=== PATIENT | male | born 1990 | race Caucasian/White ===

== ENCOUNTER 2017-08-09 15:46 | Inpatient (IN) | payer SELFPAY ==
[~2017-08-09] VITALS: Ht 190.5 cm; Wt 91.9 kg
--- NOTE | 2017-08-09 16:18 | EMERGENCY ROOM VISIT NOTE ---
History Report prepared by Joan: Dave Davis Under the Supervision of: Dr. Francisca Waller D.O. First contact with patient: 15:57 Chief Complaint: CHEST PAIN Stated Complaint: CHEST PAIN,RAPID HEART RATE History of Present Illness The patient is a 27 year old male who presents to the Emergency Room with complaints of waxing and waning chest pain that started this morning around 4 and a half hours ago. He says that he was standing up at work doing nothing out of the ordinary when he started feeling a rapid, fluttering heartbeat, as well as some chest pain, lightheadedness, and dizziness. He states that he felt like the room was spinning. The patient says that the symptoms have been waxing and waning throughout the day, but has been persistent all day. He notes that he had an episode similar to this in December, but it was much worse that time. He says that he did not get followed-up for the episode. He states that the pain has been dull today. The patient notes that nothing has been making the pain better or worse. He adds that he is currently recovering from a cold, but has not taken any medications for the cold in the past few days. He states that he has not drank that much water today, and did not drink any caffeine today. The patient denies any shortness of breath, radiation of pain, feelings of passing out, nausea, vomiting, urinary symptoms, or bowel movement changes. He also denies any recent changes in his diet or any long travels. The patient says that he does not take any daily medications. He notes that he drinks alcohol occasionally, but does not smoke or use recreational drugs. He notes no family history of heart disease. He does add that he has had some increased stress recently. Source of History: patient Onset: Around 4 and a half hours ago Position: chest Quality: dull Timing: waxes/wanes Associated Symptoms: No SOB, No nausea, No vomiting, No urinary symptoms Note: Associated symptoms: Rapid, fluttering heart rate. Lightheadedness, dizziness, room spinning. Denies feelings of passing out, bowel movement changes. Review of Systems See HPI for pertinent positives & negatives. A total of 10 systems reviewed and were otherwise negative. Past Medical & Surgical Medical Problems: (1) ARF (acute renal failure) (2) No chronic diseases present Family History No pertinent family history Social History Smoking Status: Former Smoker Smokeless Tobacco Use: No Alcohol Use: occasionally Marital Status: in relationship Current/Historical Medications Scheduled Amoxicillin & Pot Clavulanate (Augmentin 500MG), 1 TAB PO TID Allergies Coded Allergies: No Known Allergies (Unverified , 08/09/17) Physical Exam Vital Signs Date Time Temp Pulse Resp B/P (MAP) Pulse Ox O2 Delivery O2 Flow Rate FiO2 08/09/17 18:53 97 20 146/82 100 Room Air 08/09/17 17:21 105 20 169/86 99 Room Air 08/09/17 16:11 102 08/09/17 16:03 100 Room Air 08/09/17 16:02 100 Room Air 08/09/17 15:51 36.6 107 20 152/87 100 Room Air Physical Exam GENERAL: alert, well appearing, well nourished, no distress, non-toxic EYE EXAM: normal conjunctiva, PERRL and EOM's grossly intact OROPHARYNX: no exudate, no erythema, lips, buccal mucosa, and tongue normal and mucous membranes are moist NECK: supple, no nuchal rigidity, no adenopathy, non-tender LUNGS: Clear to auscultation. Normal chest wall mechanics HEART: Tachycardic rate, regular rhythm. No murmurs, S1 normal and S2 normal ABDOMEN: abdomen soft, non-tender, normo-active bowel sounds, no masses, no rebound or guarding. BACK: Back is symmetrical on inspection and there is no deformity, no midline tenderness, no CVA tenderness. SKIN: no rashes and no bruising UPPER EXTREMITIES: upper extremities are grossly normal. LOWER EXTREMITIES: No pitting edema. NEURO EXAM: Normal sensorium, cranial nerves II-XII grossly intact, normal speech, no gross weakness of arms, no gross weakness of legs. Medical Decision & Procedures ER Provider Diagnostic Interpretation: Radiology results have been interpreted by the radiologist and reviewed by me. CHEST ONE VIEW PORTABLE CLINICAL HISTORY: 27 years-old Male presenting with chest pain. TECHNIQUE: Portable upright AP view of the chest was obtained. COMPARISON: None. FINDINGS: Cardiomediastinal silhouette normal. Lungs and pleural spaces clear. Osseous structures normal. Upper abdomen normal. IMPRESSION: 1. No acute cardiopulmonary disease. Electronically signed by: Nick Zamarripa M.D. 08/09/2017 4:52 PM Dictated Date/Time: 08/09/2017 4:51 PM Bedside echo revealed no pericardial effusion. Normal EF. No evidence of RV dilatation. Laboratory Results Test 08/09/17 16:25 08/09/17 17:08 08/09/17 18:49 Hypersegmented Polys 1+ Prothrombin Time 11.2 SECONDS (9.0-12.0) Prothromb Time International Ratio 1.0 (0.9-1.1) D-Dimer 380 ug/L FEU (0-500) Total Bilirubin 0.5 mg/dl (0.2-1) Aspartate Amino Transf (AST/SGOT) 50 U/L (15-37) Alanine Aminotransferase (ALT/SGPT) 42 U/L (12-78) Alkaline Phosphatase 94 U/L (45-117) C-Reactive Protein < 0.29 mg/dl (0-0.29) Total Protein 8.0 gm/dl (6.4-8.2) Albumin 4.4 gm/dl (3.4-5.0) Globulin 3.6 gm/dl (2.5-4.0) Albumin/Globulin Ratio 1.2 (0.9-2) Thyroid Stimulating Hormone (TSH) 0.672 uIu/ml (0.300-4.500) Lyme Disease IgG Antibody NEG (NEG) Lyme Disease IgM Antibody NEG (NEG) Influenza Type A Antigen Neg for Influ A (NEG) Influenza Type B Antigen Neg for Influ B (NEG) Urine Color DK YELLOW Urine Appearance CLEAR (CLEAR) Urine pH 5.0 (4.5-7.5) Urine Specific [place] 1.030 (1.000-1.030) Urine Protein TRACE (NEG) Urine Glucose (UA) NEG (NEG) Urine Ketones 1+ (NEG) Urine Occult Blood NEG (NEG) Urine Nitrite NEG (NEG) Urine Bilirubin NEG (NEG) Urine Urobilinogen NEG (NEG) Urine Leukocyte Esterase NEG (NEG) Urine WBC (Auto) 1-5 /hpf (0-5) Urine RBC (Auto) 0-4 /hpf (0-4) Urine Hyaline Casts (Auto) 10-30 /lpf (0-5) Urine Epithelial Cells (Auto) 10-20 /lpf (0-5) Urine Bacteria (Auto) NEG (NEG) Urine Pathogenic Casts 1-5 GRANULAR CASTS /lpf (0) Urine Opiates Screen NEG (NEG) Urine Methadone, Qualitative NEG (NEG) Urine Barbiturates NEG (NEG) Urine Phencyclidine (PCP) Level NEG (NEG) Urine Amphetamines Confirmation NEGATIVE NG/ML ([id number]) Ur Amphetamine/Methamphetamine POS (NEG) Urine Methamphetamine Confirmation NEGATIVE NG/ML ([id number]) MDMA (Ecstasy) Screen NEG (NEG) Urine Benzodiazepines Screen NEG (NEG) Urine Cocaine Metabolite NEG (NEG) Urine Marijuana (THC) NEG (NEG) Laboratory results per my review. Medications Administered Medications (Trade) Dose Ordered Sig/Reba Route Start Time Stop Time Status Last Admin Dose Admin Lactated Ringer's 1,000 ml @ 200 mls/hr Q5H STAT IV 08/09/17 17:29 08/09/17 21:59 DC 08/09/17 17:29 200 MLS/HR Ketorolac Tromethamine (Toradol Inj) 30 mg STK-MED ONCE .ROUTE 08/09/17 18:52 08/09/17 18:53 DC 08/09/17 18:55 30 MG ECG Indication: chest pain Rate (beats per minute): 105 Rhythm: sinus tachycardia Findings: other (normal axis, normal intervals) ED Course 1605: The patient was evaluated in room A2. A complete history and physical exam was performed. 1710: I reevaluated and updated the patient. Bedside echo revealed no pericardial effusion. Normal EF. No evidence of RV dilatation. 1729: Ordered Lactated Ringer's 1000 ml @ 200 mls/hr IV. 1807: Ordered Toradol Inj 30 mg IV. 1827: Upon reevaluation, the patient is resting. I discussed the findings and the treatment plan with the patient. He expresses agreement and understanding. He will be evaluated for further management. 1857: I reviewed the patient's case with Dr. Doe Kruse [facility] [place] customer success advocate. He will evaluate the patient for further management. Medical Decision Differential diagnosis: Etiologies such as cardiac ischemia, aortic dissection, pulmonary embolism, pneumonia, pneumothorax, musculoskeletal, infections, pericarditis, myocarditis , esophageal rupture, gastrointestinal, premature contractions, electrolyte abnormality, cardiac dysrhythmia, thyroid dysfunction, pulmonary embolism, infection, gastrointestinal, as well as others were entertained. HEART score 0 Doubt PE, dissection. No evidence on bedside echo of CHF or effusion/ tamponade. Pt admitted for observation given leukocytosis. Tachycardia improved however pain persistent. Possible pericarditis, trop neg, doubt myocarditis. Doubt infiltrate/effusion. Question pleurisy. Cultures sent as a precaution. No empiric antibiotics started, no clear source. Remote hx of substance abuse, none in many years, no evidence of vegetations on bedside echo , doubt endocarditis. VS stable otw. medicine asked for CT angio to r/o dissection at time of admission. Also wanted CRP added. Medication Reconcilliation Current Medication List: was personally reviewed by me Blood Pressure Screening Patient's blood pressure: Elevated blood pressure Blood pressure disposition: Elevated BP felt to be situational Consults Time Called: [phone] Consulting Physician: Dr. Doe TAYLOR customer success advocate Returned Call: [phone] I reviewed the patient's case with Dr. Doe TAYLOR customer success advocate. He will evaluate the patient for further management. Impression Primary Impression: Chest pain Additional Impressions: Palpitations Leukocytosis Scribe Attestation The scribe's documentation has been prepared under my direction and personally reviewed by me in its entirety. I confirm that the note above accurately reflects all work, treatment, procedures, and medical decision making performed by me. Departure Information Dispostion Being Evaluated By Hospitalist Prescriptions Amoxicillin & Pot Clavulanate (AUGMENTIN 500MG) 1 Tab Tab 1 TAB PO TID for 6 Days, #18 TAB Prov: Florentino Mirza M.D. 08/11/17 Referrals No Doctor, Assigned (PCP) Patient Instructions My [facility] Problem Qualifiers Primary Impression: Chest pain Chest pain type: unspecified Qualified Codes: R07.9 - Chest pain, unspecified Additional Impressions: Leukocytosis Leukocytosis type: unspecified Qualified Codes: D72.829 - Elevated white blood cell count, unspecified
[2017-08-09 16:47] LABS: HEMATOCRIT 44.1 % (42-52); MEAN CELL VOLUME 90.7 fL (80-100); MEAN CORPUSCULAR HEMOGLOBIN 33.1 pg (25-34); MEAN CORPUSCULAR HGB CONC 36.5 g/dl (32-36); PLATELET COUNT 246 K/uL (130-400); RED BLOOD COUNT 4.86 M/uL (4.7-6.1); WHITE BLOOD COUNT 25.98 K/uL (4.8-10.8)
--- NOTE | 2017-08-09 16:53 | DIAGNOSTIC IMAGING REPORT ---
CHEST ONE VIEW PORTABLE CLINICAL HISTORY: 27 years-old Male presenting with chest pain. TECHNIQUE: Portable upright AP view of the chest was obtained. COMPARISON: None. FINDINGS: Cardiomediastinal silhouette normal. Lungs and pleural spaces clear. Osseous structures normal. Upper abdomen normal. IMPRESSION: 1. No acute cardiopulmonary disease. Electronically signed by: Nick Zamarripa M.D. 08/09/2017 4:52 PM Dictated Date/Time: 08/09/2017 4:51 PM
[2017-08-09 16:55] LABS: PROTHROMBIN TIME (PATIENT) 11.2 SECONDS (9.0-12.0)
[2017-08-09 17:08] LABS: BASO % 0.1 %; BASO ABS # 0.02 K/uL (0-0.2); COMPLETE YES; HYPERSEGMENTED POLYS 1+; IG% 0.6 %; LYMPH % 2.9 %; LYMPH ABS # 0.75 K/uL (1.2-3.4); MONO % 3.6 %; NEUT % 92.8 %
[2017-08-09 17:16] LABS: ALT/SGPT 42 U/L (12-78); AST/SGOT 50 U/L (15-37); BLOOD UREA NITROGEN 19 mg/dl (7-18); BUN/CREATININE RATIO 10.1 (10-20); CALCIUM 9.2 mg/dl (8.5-10.1); CARBON DIOXIDE 18 mmol/L (21-32); CHLORIDE 102 mmol/L (98-107); CREATININE 1.87 mg/dl (0.60-1.40); GLUCOSE 196 mg/dl (70-99); POTASSIUM 4.2 mmol/L (3.5-5.1); SODIUM 136 mmol/L (136-145)
[2017-08-09 17:26] LABS: ALB/GLOB RATIO 1.2 (0.9-2); ALKALINE PHOSPHATASE 94 U/L (45-117); THYROID STIMULATING HORMONE 0.672 uIu/ml (0.300-4.500)
[2017-08-09] MEDS ORDERED: LACTATED RINGER'S 1000ML 1,000 ML IV STA (17:29)
[2017-08-09 17:34] LABS: LYME DISEASE AB IGM NEG (NEG)
[2017-08-09 17:35] LABS: LYME DISEASE AB IGG NEG (NEG)
[2017-08-09] MEDS ORDERED: KETOROLAC TROMETHAMINE 30 MG/ML VIAL IV STA (18:07)
[2017-08-09] MEDS ORDERED: KETOROLAC TROMETHAMINE 30 MG/ML VIAL ONE (18:52)
[2017-08-09 19:04] LABS: URINE APPEARANCE CLEAR (CLEAR); URINE BILIRUBIN NEG (NEG); URINE COLOR DK YELLOW; URINE NITRITE NEG (NEG); UROBILINOGEN NEG (NEG); ZZUR CULT IF INDIC CLEAN CATCH NO
[2017-08-09 19:05] LABS: MANUAL MICROSCOPIC REQUIRED? NO; REVIEW REQ? YES
[2017-08-09 19:21] LABS: URINE PATH CASTS 1-5 GRANULAR CASTS /lpf (0)
[2017-08-09 19:42] LABS: BENZODIAZEPINE, URINE NEG (NEG); COCAINE,URINE NEG (NEG); PHENCYCLIDINE, URINE NEG (NEG)
[2017-08-09] MEDS ORDERED: ALUMINUM/MAGNESIUM/SIMETH (MAALOX MAX) 30 ML UDC PO PRN (19:45)
[2017-08-09] MEDS ORDERED: POLYETHYLENE (MIRALAX) 17 GM PACK PO PRN (19:45)
[2017-08-09] MEDS ORDERED: ONDANSETRON INJ 2 MG/ML 2 ML VIAL IV PRN (19:45)
[2017-08-09] MEDS ORDERED: MoRPHine SULFATE 2 MG/ML CARP IV PRN (19:45)
[2017-08-09] MEDS ORDERED: ACETAMINOPHEN 325 MG TAB PO PRN (19:45)
[2017-08-09] MEDS ORDERED: MAGNESIUM HYDROXIDE SUSP 30 ML UDC PO PRN (19:45)
--- NOTE | 2017-08-09 19:56 | History and Physical ---
History & Physical Date & Time of Service: Aug 09, 2017 at 19:54 Chief Complaint: Chest Pain,Rapid Heart Rate Primary Care Physician: No Doctor, Assigned History of Present Illness Source: patient This is a 27 yo m that is presenting to us with left sided chest pain which started this evening. 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 He states that the chest pain is at the mid clavicular line approx half way down the chest and he can point to it with one finger. He notes that the pain is non radiating, intermittent, dull 4/10 pain. No known aggravating factors and non positional. It is not reproducible with palpation. He had a similar type of chest pain a few months back when he was ill and it was attributed to Sudafed use. He notes he is "just getting over a cold" which lasted approx a week. He was using decongestants at the beginning of the illness however has not used it for several days. He was also suffering from non bloody diarrhea which has resolved. He denies any abdominal pain, fever, sob, nausea. No history of cardiovascular events. Non smoker and no cocaine use. Past Medical/Surgical History Medical Problems: (1) No chronic diseases present Status: Chronic Family History No pertinent family history Social History Smoking Status: Former Smoker Smokeless Tobacco Use: No Alcohol Use: socially Drug Use: none Marital Status: single, in relationship Housing status: lives with friends Occupational Status: employed Allergies Coded Allergies: No Known Allergies (Unverified , 08/09/17) Home Medications No Active Prescriptions or Reported Meds Review of Systems Constitutional: No fever, No chills, No sweats Eyes: No worsening of vision ENT: No hearing loss Respiratory: No cough, No sputum, No wheezing, No shortness of breath, No dyspnea on exertion, No dyspnea at rest Cardiovascular: + chest pain Abdomen: + diarrhea, No pain, No nausea, No vomiting, No constipation Musculoskeletal: No joint pain, No muscle pain Genitourinary - Male: No hematuria Neurologic: No weakness, No numbness/tingling, No balance problems Psychiatric: No depression symptoms Endocrine: No fatigue Integumentary: No rash Physical Exam Vital Signs Date Time Temp Pulse Resp B/P (MAP) Pulse Ox O2 Delivery O2 Flow Rate FiO2 08/09/17 18:53 97 20 146/82 100 Room Air 08/09/17 17:21 105 20 169/86 99 Room Air 08/09/17 16:11 102 08/09/17 16:03 100 Room Air 08/09/17 16:02 100 Room Air 08/09/17 15:51 36.6 107 20 152/87 100 Room Air General Appearance: no apparent distress, + pertinent finding (marfinoid like habitus) Head: normocephalic, atraumatic Eyes: normal inspection ENT: normal ENT inspection Neck: supple Respiratory/Chest: normal breath sounds, no respiratory distress, no accessory muscle use Cardiovascular: no murmur, + tachycardia, + pertinent finding (PMI is just left to the left mid clavicular line) Abdomen/GI: normal bowel sounds, non tender, soft Back: normal inspection, no CVA tenderness Extremities/Musculoskelatal: normal inspection, no calf tenderness, no pedal edema Neurologic/Psych: alert Skin: normal color, warm/dry, no rash Lymphatic: no adenopathy Diagnostics Laboratory Results Results Past 24 Hours Test 08/09/17 16:25 08/09/17 17:08 08/09/17 18:49 08/09/17 19:45 Range/Units White Blood Count 25.98 4.8-10.8 K/uL Red Blood Count 4.86 4.7-6.1 M/uL Hemoglobin 16.1 14.0-18.0 g/dL Hematocrit 44.1 42-52 % Mean Corpuscular Volume 90.7 80-100 fL Mean Corpuscular Hemoglobin 33.1 25-34 pg Mean Corpuscular Hemoglobin Concent 36.5 32-36 g/dl Platelet Count 246 130-400 K/uL Mean Platelet Volume 9.0 7.4-10.4 fL Neutrophils (%) (Auto) 92.8 % Lymphocytes (%) (Auto) 2.9 % Monocytes (%) (Auto) 3.6 % Eosinophils (%) (Auto) 0.0 % Basophils (%) (Auto) 0.1 % Neutrophils # (Auto) 24.12 1.4-6.5 K/uL Lymphocytes # (Auto) 0.75 1.2-3.4 K/uL Monocytes # (Auto) 0.94 0.11-0.59 K/uL Eosinophils # (Auto) 0.00 0-0.5 K/uL Basophils # (Auto) 0.02 0-0.2 K/uL RDW Standard Deviation 45.1 36.4-46.3 fL RDW Coefficient of Variation 13.9 11.5-14.5 % Immature Granulocyte % (Auto) 0.6 % Immature Granulocyte # (Auto) 0.15 0.00-0.02 K/uL Hypersegmented Polys 1+ Prothrombin Time 11.2 9.0-12.0 SECONDS Prothromb Time International Ratio 1.0 0.9-1.1 D-Dimer 380 0-500 ug/L FEU Sodium Level 136 136-145 mmol/L Potassium Level 4.2 3.5-5.1 mmol/L Chloride Level 102 98-107 mmol/L Carbon Dioxide Level 18 21-32 mmol/L Anion Gap 16.0 3-11 mmol/L Blood Urea Nitrogen 19 7-18 mg/dl Creatinine 1.87 0.60-1.40 mg/dl Est Creatinine Clear Calc Drug Dose 70.9 ml/min Estimated GFR () 55.8 Estimated GFR (Non- 48.2 BUN/Creatinine Ratio 10.1 10-20 Random Glucose 196 70-99 mg/dl Calcium Level 9.2 8.5-10.1 mg/dl Magnesium Level 2.0 1.8-2.4 mg/dl Total Bilirubin 0.5 0.2-1 mg/dl Aspartate Amino Transf (AST/SGOT) 50 15-37 U/L Alanine Aminotransferase (ALT/SGPT) 42 12-78 U/L Alkaline Phosphatase 94 45-117 U/L Troponin I < 0.015 0-0.045 ng/ml Total Protein 8.0 6.4-8.2 gm/dl Albumin 4.4 3.4-5.0 gm/dl Globulin 3.6 2.5-4.0 gm/dl Albumin/Globulin Ratio 1.2 0.9-2 Thyroid Stimulating Hormone (TSH) 0.672 0.300-4.500 uIu/ml Lyme Disease IgG Antibody NEG NEG Lyme Disease IgM Antibody NEG NEG Influenza Type A Antigen Neg for Influ A NEG Influenza Type B Antigen Neg for Influ B NEG Urine Color DK YELLOW Urine Appearance CLEAR CLEAR Urine pH 5.0 4.5-7.5 Urine Specific [place] 1.030 1.000-1.030 Urine Protein TRACE NEG Urine Glucose (UA) NEG NEG Urine Ketones 1+ NEG Urine Occult Blood NEG NEG Urine Nitrite NEG NEG Urine Bilirubin NEG NEG Urine Urobilinogen NEG NEG Urine Leukocyte Esterase NEG NEG Urine WBC (Auto) 1-5 0-5 /hpf Urine RBC (Auto) 0-4 0-4 /hpf Urine Hyaline Casts (Auto) 10-30 0-5 /lpf Urine Epithelial Cells (Auto) 10-20 0-5 /lpf Urine Bacteria (Auto) NEG NEG Urine Pathogenic Casts 1-5 GRANULAR CASTS 0 /lpf Urine Opiates Screen NEG NEG Urine Methadone, Qualitative NEG NEG Urine Barbiturates NEG NEG Urine Phencyclidine (PCP) Level NEG NEG Ur Amphetamine/Methamphetamine POS NEG MDMA (Ecstasy) Screen NEG NEG Urine Benzodiazepines Screen NEG NEG Urine Cocaine Metabolite NEG NEG Urine Marijuana (THC) NEG NEG Microbiology Results 08/09/17 Blood Culture, Received Pending 08/09/17 Blood Culture, Received Pending Diagnostic Radiology CHEST ONE VIEW PORTABLE CLINICAL HISTORY: 27 years-old Male presenting with chest pain. TECHNIQUE: Portable upright AP view of the chest was obtained. COMPARISON: None. FINDINGS: Cardiomediastinal silhouette normal. Lungs and pleural spaces clear. Osseous structures normal. Upper abdomen normal. IMPRESSION: 1. No acute cardiopulmonary disease. EKG sinus tachy 120 possible LVH, meets criteria no ischemic changes, no ectopy Impression Assessment and Plan This is a 27 yo m that is presenting to us with left sided non radiating chest pain after a recent illness. Patient does have an elevated WBC with no focal point of infection noted at this time as well as BISHOP. Chest pain NYD - pericarditis vs NSTEMI vs musculoskeletal - tele admission - Patient did received LR in the ED as well as an NSS bolus with plan for CTA chest, concern based on marfanoid habitus and atypical nature of pain - troponin trend - ekg in am Leukocytosis - infectious? - as there was no focal source on exam for potential infection CT abd pelvis was ordered as well as a chest CTA - Procalcitonin and CRP - peripheral smear - C diff and stool cultures - follow up CBC in am - rocephin and vanco BISHOP secondary to dehydration - NSS @ 125 cc/h - follow up PRP in the am - USG in am for morphology of kidney - FENA DVT Prophylaxis - SCD, patient is low risk - encouraged to ambulate FULL CODE Resident Physician Supervision Note: I was present with Dr. Coombs during the history and exam. I discussed the case with the resident and agree with the findings and plan as documented in the note. Any exceptions or clarifications are listed here: 27 y/o M who denies a significant medical history. He had been recovering from a viral illness and ingesting [id number] pseudo-ephedrine. He additionally reports diarrhea until approximately a few days ago. 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 Initial labs obtained in the ER reveal leukocytosis and ARF. A CTA was obtained to r/o dissection which was negative but did show fatty infiltration of the liver, surprising in this young, thin individual. This is a curious case as it is difficult to tie in some disparate findings such as leukocytosis without evidence of active infection, ARF, persistent tachycardia, abnormal liver morphology on CT He may be overusing pseudoephedrine although this does not explain all of the above. A viral illness in addition to resultant pericarditis is a strong consideration although his CRP is currently normal and this does not explain his renal failure. Based on his CT, occult ETOH abuse and withdrawal symptoms are also a consideration. Pheochromocytoma would also be a possibility. No related abnormality is reported on CT, however, he underwent a dissection study which is likely suboptimal for this diagnosis. OE AAO x 3 S1,2 tachy, bounding pulse CTAB NT, ND No CCE P: We have elected to provide a dose of broad spectrum antibiotics pending culture results owing to a + procalcitonin and significant leukocytosis. An echo is ordered and a cardiology consult is requested. He will need follow-up for GI evaluation which can be pursued in the outpt setting. CAD is not likely - he is assigned to telemetry and serial enzymes are ordered. Flu swab is pending. FENa will be calculated and if his renal function does not improve with aggressive hydration, a nephrology consult should be called. Regarding a Pheo, it is unclear if pseudoephedrine abuse may skew the results of a fractionated metanephrine test and we should likely hold off in the immediate-term. Documented By: Benjamin Hines Level of Care Telemetry Resuscitation Status FULL RESUSCITATION VTE Prophylaxis VTE Risk Assessment Done? Y/N: Yes Risk Level: Low Given or contraindicated: SCD's Social Service Consult None Apply Note Total Time: Critical Care 30 - 74 minutes
--- NOTE | 2017-08-09 20:51 | DIAGNOSTIC IMAGING REPORT ---
CHEST COMBO ANGIOGRAPHY HISTORY: 27 years-old Male with presents with acute chest pain and tachycardia with concern for aortic dissection. TECHNIQUE: Multiple CTA images of the chest were obtained after the intravenous administration of 116 ml Optiray 320. Coronal and sagittal MIPS were obtained from the axial data set and were submitted for review. All measurements were obtained according to NASCET criteria. A dose lowering technique was utilized adhering to the principles of ALARA. COMPARISON: CTA of the abdomen and pelvis of same day, chest radiograph same day. FINDINGS: CTA: Heart is normal in size without pericardial effusion. The thoracic aorta is normal in both course and caliber without dissection or aneurysm. Imaged great vessels are patent. No significant atherosclerotic plaquing identified. The opacified pulmonary arterial tree is unremarkable. The noncontrast scan demonstrates no evidence of intramural hematoma. CT CHEST: No dominant thyroid nodule. No pathologic adenopathy. There is minimal residual thymic tissue of the anterior mediastinum. No pneumothorax, pleural effusion or focal airspace consolidation. The lung huitron are clear. Minimal left greater than right biapical bleb formation with some biapical pleural parenchymal scarring. Central airways are patent. There is diffuse fatty infiltration of the liver. 9 mm low attenuating lesion of the superior pole left kidney is too small to characterize however suggests cyst. Soft tissues are unremarkable. Bones appear intact. IMPRESSION: 1. No acute cardiopulmonary process, specifically no aortic dissection or aneurysm. 2. Diffuse fatty infiltration of the liver. The above report was generated using voice recognition software. It may contain grammatical, syntax or spelling errors. Electronically signed by: Ivan Yates M.D. 08/09/2017 8:49 PM Dictated Date/Time: 08/09/2017 8:43 PM
--- NOTE | 2017-08-09 20:57 | DIAGNOSTIC IMAGING REPORT ---
ANGIO ABD/PELVIS COMBO CLINICAL HISTORY: 27 years-old Male presents with acute chest pain and tachycardia. Concern for abdominal aortic aneurysm. COMPARISON STUDY: CTA chest of same day TECHNIQUE: Following the IV administration of 116 cc of Optiray 320, CT angiogram of the abdomen and pelvis was performed from the lung bases the proximal femora. Images are reviewed in the axial, sagittal, and coronal planes. 3-D MIPS images are created and assessed. IV contrast was administered without complication. A dose lowering technique was utilized adhering to the principles of ALARA. CT DOSE: 1174.21 mGy.cm FINDINGS: CTA: There is no intramural hematoma on the noncontrast scan. Abdominal aorta is normal in both course and caliber without aneurysm or dissection. There is no significant atherosclerotic plaquing identified. The proximal opacified portions of the celiac trunk, superior and inferior mesenteric arteries are patent and appear unremarkable. The bilateral renal arteries are also widely patent and within normal limits. The IVC is not well opacified. The opacified oral vein is unremarkable. CT ABDOMEN/PELVIS: Lung bases are clear. No pneumoperitoneum. Inferior cardiac chambers are unremarkable. There is diffuse fatty infiltration of the liver. No focal hepatic mass lesions identified. No intrahepatic biliary ductal dilation. Gallbladder is partially contracted. The spleen, pancreas and adrenal glands are within normal limits. Low attenuating lesion of the superior pole left kidney is noted, 9 mm which is too small to characterize however suggests renal cyst. Kidneys are otherwise unremarkable without renal calculi or hydronephrosis. Ureters and urinary bladder are also within normal limits. There is no bulky adenopathy identified. There is no bowel obstruction or focal bowel wall thickening identified. The appendix appears normal. Soft tissues are unremarkable. Bones appear intact. No significant degenerative changes are seen. IMPRESSION: 1. Unremarkable CTA of the abdomen and pelvis without aneurysm, dissection, high-grade stenosis or proximal branch occlusion. 2. Fatty infiltration of the liver. 3. Normal appendix. The above report was generated using voice recognition software. It may contain grammatical, syntax or spelling errors. Electronically signed by: Ivan Yates M.D. 08/09/2017 8:56 PM Dictated Date/Time: 08/09/2017 8:50 PM
[2017-08-09 21:21] VITALS: BP 166/99; PULSE 103; TEMP 36.9; O2SAT 99
[2017-08-09] MEDS ORDERED: CEFTRIAXONE SOD INJ 1 GM in DEXTROSE 5% ADD-VANTAGE 50ML 50 ML IV STA (21:51)
[2017-08-09] MEDS ORDERED: SODIUM CHLORIDE 0.9% 1000ML 1,000 ML IV SCH (22:00)
[2017-08-09 22:09] VITALS: BP 166/99; PULSE 103; TEMP 36.9; O2SAT 99; Ht 190.5 cm; Wt 91.9 kg
[2017-08-09] MEDS ORDERED: VANCOMYCIN INJ 2,000 MG in SODIUM CHLORIDE 0.9% 500ML 500 ML IV SCH (22:30)
[2017-08-09] MEDS ORDERED: VANCOMYCIN CONSULT ACTIVE PRN (22:30)
[2017-08-09 22:58] VITALS: BP 146/70; PULSE 96; TEMP 36.5; O2SAT 92
--- NOTE | 2017-08-09 23:34 | Pharmacy Progress Note ---
Pharmacy Antibiotic Consult Date of Service: Aug 09, 2017. Pharmacy Dosing Scope Pharmacy is consulted to initiate empiric vancomycin IV dosing therapy, order appropriate labs and adjust drug dose/frequency. Subjective The patient is a 27 year old male admitted on Aug 09, 2017 at 19:40 with left sided chest pain, elevated white count, no obvious site of infection. Objective Height (Feet): 6 Height (Inches): 3.00 Weight (Kilograms): 90.000 Lab Results (24hrs): Test 08/09/17 16:25 08/09/17 17:08 08/09/17 18:49 White Blood Count 25.98 K/uL (4.8-10.8) Red Blood Count 4.86 M/uL (4.7-6.1) Hemoglobin 16.1 g/dL (14.0-18.0) Hematocrit 44.1 % (42-52) Mean Corpuscular Volume 90.7 fL (80-100) Mean Corpuscular Hemoglobin 33.1 pg (25-34) Mean Corpuscular Hemoglobin Concent 36.5 g/dl (32-36) Platelet Count 246 K/uL (130-400) Mean Platelet Volume 9.0 fL (7.4-10.4) Neutrophils (%) (Auto) 92.8 % Lymphocytes (%) (Auto) 2.9 % Monocytes (%) (Auto) 3.6 % Eosinophils (%) (Auto) 0.0 % Basophils (%) (Auto) 0.1 % Neutrophils # (Auto) 24.12 K/uL (1.4-6.5) Lymphocytes # (Auto) 0.75 K/uL (1.2-3.4) Monocytes # (Auto) 0.94 K/uL (0.11-0.59) Eosinophils # (Auto) 0.00 K/uL (0-0.5) Basophils # (Auto) 0.02 K/uL (0-0.2) RDW Standard Deviation 45.1 fL (36.4-46.3) RDW Coefficient of Variation 13.9 % (11.5-14.5) Immature Granulocyte % (Auto) 0.6 % Immature Granulocyte # (Auto) 0.15 K/uL (0.00-0.02) Hypersegmented Polys 1+ Prothrombin Time 11.2 SECONDS (9.0-12.0) Prothromb Time International Ratio 1.0 (0.9-1.1) D-Dimer 380 ug/L FEU (0-500) Sodium Level 136 mmol/L (136-145) Potassium Level 4.2 mmol/L (3.5-5.1) Chloride Level 102 mmol/L (98-107) Carbon Dioxide Level 18 mmol/L (21-32) Anion Gap 16.0 mmol/L (3-11) Blood Urea Nitrogen 19 mg/dl (7-18) Creatinine 1.87 mg/dl (0.60-1.40) Est Creatinine Clear Calc Drug Dose 70.9 ml/min Estimated GFR () 55.8 Estimated GFR (Non- 48.2 BUN/Creatinine Ratio 10.1 (10-20) Random Glucose 196 mg/dl (70-99) Calcium Level 9.2 mg/dl (8.5-10.1) Magnesium Level 2.0 mg/dl (1.8-2.4) Total Bilirubin 0.5 mg/dl (0.2-1) Aspartate Amino Transf (AST/SGOT) 50 U/L (15-37) Alanine Aminotransferase (ALT/SGPT) 42 U/L (12-78) Alkaline Phosphatase 94 U/L (45-117) Troponin I < 0.015 ng/ml (0-0.045) C-Reactive Protein < 0.29 mg/dl (0-0.29) Total Protein 8.0 gm/dl (6.4-8.2) Albumin 4.4 gm/dl (3.4-5.0) Globulin 3.6 gm/dl (2.5-4.0) Albumin/Globulin Ratio 1.2 (0.9-2) Procalcitonin 0.52 ng/ml (0-0.5) Thyroid Stimulating Hormone (TSH) 0.672 uIu/ml (0.300-4.500) Lyme Disease IgG Antibody NEG (NEG) Lyme Disease IgM Antibody NEG (NEG) Influenza Type A Antigen Neg for Influ A (NEG) Influenza Type B Antigen Neg for Influ B (NEG) Urine Color DK YELLOW Urine Appearance CLEAR (CLEAR) Urine pH 5.0 (4.5-7.5) Urine Specific Tiller 1.030 (1.000-1.030) Urine Protein TRACE (NEG) Urine Glucose (UA) NEG (NEG) Urine Ketones 1+ (NEG) Urine Occult Blood NEG (NEG) Urine Nitrite NEG (NEG) Urine Bilirubin NEG (NEG) Urine Urobilinogen NEG (NEG) Urine Leukocyte Esterase NEG (NEG) Urine WBC (Auto) 1-5 /hpf (0-5) Urine RBC (Auto) 0-4 /hpf (0-4) Urine Hyaline Casts (Auto) 10-30 /lpf (0-5) Urine Epithelial Cells (Auto) 10-20 /lpf (0-5) Urine Bacteria (Auto) NEG (NEG) Urine Pathogenic Casts 1-5 GRANULAR CASTS /lpf (0) Urine Opiates Screen NEG (NEG) Urine Methadone, Qualitative NEG (NEG) Urine Barbiturates NEG (NEG) Urine Phencyclidine (PCP) Level NEG (NEG) Ur Amphetamine/Methamphetamine POS (NEG) MDMA (Ecstasy) Screen NEG (NEG) Urine Benzodiazepines Screen NEG (NEG) Urine Cocaine Metabolite NEG (NEG) Urine Marijuana (THC) NEG (NEG) Recent Pertinent Medications Rocephin 1gm x 1 Assessment & Plan Vancomycin: Loading dose: 2000 mg IV X 1 dose (~22mg/kg) then: 1250 mg IV every 12 hours (~14mg/kg). Goal trough level estimate: between 15 - 18 mcg/mL. Trough level will be ordered when SCr evaluated in AM as renal fx is expected to improve. Pharmacy will continue to follow and will adjust dose/frequency as necessary. Thank you
[2017-08-10] VITALS (7 sets, daily range): BP systolic 122–160; BP diastolic 68–79; PULSE 60–83; TEMP 36.5–37; O2SAT 96–99
[2017-08-10] MEDS: SODIUM CHLORIDE 0.9% 1000ML 1,000 ML IV SCH ×2 (03:09→08:45)
[2017-08-10 06:39] LABS: BASO % 0.4 %; BASO ABS # 0.05 K/uL (0-0.2); EOS % 1.1 %; HEMATOCRIT 39.3 % (42-52); IG% 0.4 %; LYMPH ABS # 1.95 K/uL (1.2-3.4); MEAN CELL VOLUME 90.8 fL (80-100); MEAN CORPUSCULAR HEMOGLOBIN 32.6 pg (25-34); MEAN CORPUSCULAR HGB CONC 35.9 g/dl (32-36); MEAN PLATELET VOLUME 8.7 fL (7.4-10.4); NEUT % 71.1 %; PLATELET COUNT 212 K/uL (130-400); RED BLOOD COUNT 4.33 M/uL (4.7-6.1); WHITE BLOOD COUNT 12.21 K/uL (4.8-10.8)
[2017-08-10 07:02] LABS: BUN/CREATININE RATIO 15.4 (10-20); CALCIUM 8.4 mg/dl (8.5-10.1); CREATININE 1.42 mg/dl (0.60-1.40); MAGNESIUM 2.1 mg/dl (1.8-2.4); POTASSIUM 4.1 mmol/L (3.5-5.1)
[2017-08-10] MEDS ORDERED: VANCOMYCIN INJ 1,250 MG in SODIUM CHLORIDE 0.9% 250ML 250 ML IV SCH (08:00)
--- NOTE | 2017-08-10 08:04 | Family Medicine Progress Note ---
Progress Note Date of Service Aug 10, 2017. Subjective Pt evaluation today including: conversation w/ patient, physical exam, chart review, lab review, review of studies Pain: pain has resolved overnight PO Intake: tolerating normal diet well Voiding: no voiding problems Patient is feeling well. He is eager to find a cause for his symptoms, but would very much like to go home. Constitutional: No fever, No chills, No sweats, No weakness, No fatigue ENT: + nasal symptoms, + problem reported (runny nose, congestion) Respiratory: No cough, No wheezing, No shortness of breath, No dyspnea on exertion, No dyspnea at rest Cardiovascular: No chest pain, No edema Abdomen: No pain, No nausea, No vomiting, No diarrhea Male : No dysuria Medications Current Inpatient Medications Medications (Trade) Dose Ordered Sig/Reba Route Start Time Stop Time Status Last Admin Dose Admin Acetaminophen (Tylenol Tab) 650 mg Q4H PRN PO 08/09/17 19:45 09/08/17 19:44 Al Hydrox/Mg Hydrox/Simethicone (Maalox Max Susp) 15 ml Q4H PRN PO 08/09/17 19:45 09/08/17 19:44 Magnesium Hydroxide (Milk Of Magnesia Susp) 30 ml Q12H PRN PO 08/09/17 19:45 09/08/17 19:44 Ondansetron HCl (Zofran Inj) 4 mg Q6H PRN IV 08/09/17 19:45 09/08/17 19:44 Morphine Sulfate (MoRPHine SULFATE INJ) 2 mg Q30M PRN IV 08/09/17 19:45 08/23/17 19:44 Polyethylene (Miralax Powder Packet) 17 gm DAILY PRN PO 08/09/17 19:45 09/08/17 19:44 Vancomycin HCl (Consult) 1 ea UD PRN N/A 08/09/17 22:30 09/08/17 22:29 Sodium Chloride 1,000 ml @ 125 mls/hr Q8H IV 08/10/17 00:45 09/09/17 00:44 08/10/17 08:45 125 MLS/HR Vancomycin HCl 1500 mg/Sodium Chloride 530 ml @ 200 mls/hr Q10H IV 08/10/17 18:00 08/24/17 17:59 11/11/17 17:47 200 MLS/HR Ceftriaxone Sodium 1 gm/ Dextrose 50 ml @ 100 mls/hr Q24H IV 08/10/17 20:00 08/17/17 19:59 Objective Vital Signs Date Time Temp Pulse Resp B/P (MAP) Pulse Ox O2 Delivery O2 Flow Rate FiO2 08/10/17 20:18 36.7 83 18 133/79 (97) 97 Room Air 08/10/17 20:00 Room Air 08/10/17 16:00 Room Air 08/10/17 15:42 36.8 60 18 141/73 (95) 99 Room Air 08/10/17 12:00 97 Room Air 08/10/17 08:00 97 Room Air 08/10/17 07:55 37.0 74 18 122/72 (89) 97 Room Air 08/10/17 04:00 36.5 16 129/68 (88) 96 Room Air 08/10/17 04:00 Room Air 08/10/17 00:00 Room Air 08/09/17 22:58 36.5 96 18 146/70 (95) 92 Room Air 08/09/17 22:09 36.9 103 18 166/99 99 Room Air Physical Exam General Appearance: WD/WN, no apparent distress Eyes: normal inspection, PERRL, EOMI, sclerae normal ENT: hearing grossly normal, pharynx normal, + nasal congestion, + nasal drainage Neck: supple, no JVD, trachea midline Respiratory/Chest: chest non-tender, lungs clear, normal breath sounds, no respiratory distress, no accessory muscle use Cardiovascular: regular rate, rhythm, no edema, no murmur Abdomen: normal bowel sounds, non tender, soft Extremities: normal range of motion, non-tender, normal inspection, no pedal edema, no calf tenderness Neurologic/Psychiatric: alert, normal mood/affect, oriented x 3 Skin: normal color, warm/dry, no rash Laboratory Results 08/10/17 13:18 Red Blood Count 4.32, Mean Corpuscular Volume 91.2, Mean Corpuscular Hemoglobin 33.1, Mean Corpuscular Hemoglobin Concent 36.3, Mean Platelet Volume 8.9, Neutrophils (%) (Auto) 73.5, Lymphocytes (%) (Auto) 16.8, Monocytes (%) (Auto) 7.9, Eosinophils (%) (Auto) 1.1, Basophils (%) (Auto) 0.4, Neutrophils # (Auto) 7.29, Lymphocytes # (Auto) 1.66, Monocytes # (Auto) 0.78, Eosinophils # (Auto) 0.11, Basophils # (Auto) 0.04 08/10/17 06:10 Test 08/10/17 06:10 08/10/17 08:30 08/10/17 09:58 08/10/17 13:18 Anion Gap 8.0 mmol/L (3-11) Est Creatinine Clear Calc Drug Dose 93.4 ml/min Estimated GFR () 77.9 Estimated GFR (Non- 67.2 BUN/Creatinine Ratio 15.4 (10-20) Calcium Level 8.4 mg/dl (8.5-10.1) Magnesium Level 2.1 mg/dl (1.8-2.4) Urine Random Creatinine 296.0 mg/dl Urine Random Sodium 43 mEq/L Troponin I < 0.015 ng/ml (0-0.045) White Blood Count 9.91 K/uL (4.8-10.8) Red Blood Count 4.32 M/uL (4.7-6.1) Hemoglobin 14.3 g/dL (14.0-18.0) Hematocrit 39.4 % (42-52) Mean Corpuscular Volume 91.2 fL (80-100) Mean Corpuscular Hemoglobin 33.1 pg (25-34) Mean Corpuscular Hemoglobin Concent 36.3 g/dl (32-36) Platelet Count 210 K/uL (130-400) Mean Platelet Volume 8.9 fL (7.4-10.4) Neutrophils (%) (Auto) 73.5 % Lymphocytes (%) (Auto) 16.8 % Monocytes (%) (Auto) 7.9 % Eosinophils (%) (Auto) 1.1 % Basophils (%) (Auto) 0.4 % Neutrophils # (Auto) 7.29 K/uL (1.4-6.5) Lymphocytes # (Auto) 1.66 K/uL (1.2-3.4) Monocytes # (Auto) 0.78 K/uL (0.11-0.59) Eosinophils # (Auto) 0.11 K/uL (0-0.5) Basophils # (Auto) 0.04 K/uL (0-0.2) RDW Standard Deviation 45.4 fL (36.4-46.3) RDW Coefficient of Variation 13.8 % (11.5-14.5) Immature Granulocyte % (Auto) 0.3 % Immature Granulocyte # (Auto) 0.03 K/uL (0.00-0.02) Procalcitonin 1.77 ng/ml (0-0.5) Assessment and Plan 27 yo M admitted with left sided non radiating chest pain after a recent illness. Patient had an elevated WBC with no focal point of infection noted at this time as well as BISHOP. Chest pain, unknown cause - pericarditis vs NSTEMI vs musculoskeletal - remains on tele, ordered EKG for tele finding of run of 1st degree heart block. - concern based on marfanoid habitus and atypical nature of pain - Chest CTA negative for cardiac pathology, did find fatty infiltrates of liver - troponin trend x 3 negative - Cardio consulted, appreciate recs: Do not think pain is of cardiac origin. Leukocytosis - infectious? - as there was no focal source on exam for potential infection CT abd pelvis was ordered as well as a chest CTA - Procalcitonin mildly elevated, and repeat was moderately elevated at 1.72 - rocephin and vanco started, to be continued - CRP normal, WCC initially at 26, down to 9 after abx - peripheral smear, C diff and stool cultures, blood cx at large - follow up CBC and procalcitonin in am BISHOP secondary to dehydration - improving, Cr. still elevated at 1.42 today - NSS @ 125 cc/h; continue - follow up PRP in the am - Renal US normal DVT Prophylaxis - SCD, patient is low risk - encouraged to ambulate FULL CODE Plan to DC tomorrow Assessment/Plan Resident Physician Supervision Note: I was present with Dr. Rivera during the history and exam. I discussed the case with the resident and agree with the findings and plan as documented in the note. Any exceptions or clarifications are listed here. 27 y/o male with a history of single episode central chest pain presents w/ chest pain. Pt reports resolution of chest pain, persistent b/l nasal congestion and laryngopharyngitis w/ nonproductive cough. S1/S2 nl RRR no MCG, CTAB, abd NT/ND BS +ve. Cardiology has evaluated this patient and does not find the chest pain concerning for cardiac origin. Regarding his leukocytosis, source may be sinusitis but the patient has elevated procalcitonin and his WBC has improved since administration of abx. At this point, would recommend continuing IV abx and waiting out BCx despite unimpressive clinical picture. Continue NSS while inpt for elevated Cr and monitor. Resident Tracking Resident Involvement: Resident Care Provided Care Provided: Adult Hospital Medicine
--- NOTE | 2017-08-10 09:51 | ECHOCARDIOGRAM REPORT ---
*NOTICE TO RECEIVING LIBERTARIAN AGENCY This information is strictly Confidential and protected under [place] law. [place] law prohibits you from making any further disclosure of this information unless further disclosure is expressly permitted by the written consent of the person to whom it pertains or is authorized by law. A general authorization for the release of medical or other information is not sufficient for this purpose. Hospital accepts no responsibility if the information is made available to any other person, INCLUDING THE PATIENT. Interpretation Summary * Name: MITZI MA Study Date: 08/10/2017 08:42 AM BP: 122/72 mmHg * Patient Location: [facility]\S\N287\S\1 HR: 85 * : 1990 (M/d/yyyy) Gender: Male Height: 75 in * Age: 27 yrs Ethnicity: CA Weight: 200 lb * Ordering Physician: Jamarcus Panaigua * Referring Physician: Self, Referred * Performed By: Nydia Gibson RCS * * Reason For Study: CHEST PAIN * BSA: 2.2 m2 * -- Conclusions -- * Left ventricular systolic function is normal. * Right ventricular systolic pressure is normal. * Essentially normal echocardiogram Procedure Details * A complete two-dimensional transthoracic echocardiogram was performed (2D, M-mode, Doppler and color flow Doppler). Left Ventricle * The left ventricle is normal in size. * There is normal left ventricular wall thickness. * Left ventricular systolic function is normal. * Ejection Fraction = 60-65%. * Normal diastolic function * The left ventricular wall motion is normal. Right Ventricle * The right ventricle is normal in size and function. Atria * The left atrial size is normal. * Right atrial size is normal. Mitral Valve * The mitral valve anatomy is normal. * Significant mitral regurgitation is absent. Tricuspid Valve * The tricuspid valve anatomy is normal. * There is mild tricuspid regurgitation. * Right ventricular systolic pressure is normal. Aortic Valve * The aortic valve is normal in structure and function. * The aortic valve is trileaflet. * No hemodynamically significant valvular aortic stenosis. * There is no significant aortic regurgitation. Pulmonic Valve * The pulmonic valve is not well seen, but is grossly normal. * Mild pulmonic valvular regurgitation. Great Vessels * The aortic root is normal size. Pericardium/Pleural * There is no pericardial effusion. Great Vessels * Normal inferior vena cava diameter and respiratory variation suggests normal central venous pressure. MMode 2D Measurements and Calculations IVSd 1.3 cm IVSs 1.6 cm LVIDd 4.7 cm LVIDs 3.0 cm LVPWd 1.1 cm LVPWs 1.8 cm IVS/LVPW 1.2 FS 34.9 % EDV(Teich) 100.4 ml ESV(Teich) 36.0 ml EF(Teich) 64.2 % EDV(cubed) 101.3 ml ESV(cubed) 27.9 ml EF(cubed) 72.4 % % IVS thick 24.0 % % LVPW thick 62.9 % LV mass(C)d 207.1 grams LV mass(C)dI 94.4 grams/m\S\2 LV mass(C)s 196.3 grams LV mass(C)sI 89.4 grams/m\S\2 SV(Teich) 64.5 ml SI(Teich) 29.4 ml/m\S\2 SV(cubed) 73.4 ml SI(cubed) 33.4 ml/m\S\2 Ao root diam 3.5 cm Ao root area 9.8 cm\S\2 LA dimension 3.5 cm LA/Ao 0.99 LVOT diam 1.9 cm LVOT area 2.9 cm\S\2 EDV(sp4-el) 105.0 ml ESV(sp4-el) 39.0 ml EF(sp4-el) 62.9 % EDV(sp2-el) 156.0 ml ESV(sp2-el) 45.0 ml EF(sp2-el) 71.2 % SV(sp4-el) 66.0 ml SI(sp4-el) 30.1 ml/m\S\2 SV(sp2-el) 111.0 ml SI(sp2-el) 50.6 ml/m\S\2 Doppler Measurements and Calculations MV E max jorge 88.4 cm/sec MV A max jorge 55.5 cm/sec MV E/A 1.6 MV P1/2t max jorge 92.3 cm/sec MV P1/2t 61.6 msec MVA(P1/2t) 3.6 cm\S\2 MV dec slope 439.0 cm/sec\S\2 MV dec time 0.20 sec Ao V2 max 155.4 cm/sec Ao max PG 9.7 mmHg Ao max PG (full) 3.3 mmHg GALA(V,A) 2.3 cm\S\2 GALA(V,D) 2.3 cm\S\2 LV V1 max PG 6.4 mmHg LV V1 max 126.2 cm/sec PA V2 max 136.3 cm/sec PA max PG 7.4 mmHg TR max jorge 228.2 cm/sec
--- NOTE | 2017-08-10 10:29 | DIAGNOSTIC IMAGING REPORT ---
(RENAL)RETROPERITON COMP CLINICAL HISTORY: 27 years-old Male presenting with angel without source. TECHNIQUE: Real-time grayscale and limited color Doppler ultrasound imaging of the kidneys and bladder was performed. COMPARISON: CT from 08/09/2017. FINDINGS: Right kidney: Normal echogenicity. Right kidney measures 12.1 cm. No hydronephrosis. No convincing evidence of calculus or mass. Normal perfusion. Left kidney: Normal echogenicity. Left kidney measures 12.7 cm. No hydronephrosis. 1.1 cm simple cyst noted at the upper pole. Normal perfusion. Bladder: Mildly prominent bladder wall. Bilateral ureteral jets noted. Other: None. IMPRESSION: 1. No obstruction. 2. Possible mild bladder wall thickening could suggest cystitis. Correlate with urinalysis. Electronically signed by: Nick Zamarripa M.D. 08/10/2017 10:28 AM Dictated Date/Time: 08/10/2017 10:26 AM
--- NOTE | 2017-08-10 11:36 | Cardiology Consultation ---
Cardiology Consultation Date of Consultation: Aug 10, 2017. Requesting Physician: Flora Reason for Consultation: Chest Pain Pt evaluation today including: conversation w/ patient, physical exam, chart review, lab review, review of studies, review of inpatient medication list, conversation w/ attending History of Present Illness The patient is a 27-year-old gentleman without a known history of cardiac disease who began experiencing symptoms of moderate chest discomfort yesterday afternoon. This was described as primarily in the submammary position and left lateral chest. It was fairly constant in nature and not associated with specific movements or changes in position. The did not appear to be any exacerbating or alleviating factors. Patient also noticed a sense of palpitations and a pounding heartbeat which waxed and waned in severity. The did not appear to be associated dizziness or lightheadedness. He did not have significant dyspnea. Based on the persistent nature of the symptoms he proceeded to [facility] for an [facility]. There was no acute etiology discovered in emergency room he was admitted for observation. He states that upon awakening this morning his symptoms have entirely resolved. Does report a similar episode occurring several months ago which also resolve without intervention. In general he is an active individual was accustomed to routine exercise. He lifts weights to perform significant aerobic activity without limitation or symptoms. Does not report exertional chest pain or dyspnea. He generally does not have any symptoms of palpitations or racing heartbeats. Past Medical/Surgical History None reported Family History No pertinent family history Hypertension. No early heart disease. No siblings or first-degree relatives with frequent syncope or sudden cardiac . Social History Smoking Status: Former Smoker History of Alcohol Use: Yes (occ. 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 Review of Systems Patient did report some subjective aches and pains and mild diaphoresis several days ago consistent with a viral illness. All Other Systems: Reviewed and Negative Allergies Coded Allergies: No Known Allergies (Unverified , 08/09/17) Medications Current Inpatient Medications Medications (Trade) Dose Ordered Sig/Reba Route Start Time Stop Time Status Last Admin Dose Admin Acetaminophen (Tylenol Tab) 650 mg Q4H PRN PO 08/09/17 19:45 09/08/17 19:44 Al Hydrox/Mg Hydrox/Simethicone (Maalox Max Susp) 15 ml Q4H PRN PO 08/09/17 19:45 09/08/17 19:44 Magnesium Hydroxide (Milk Of Magnesia Susp) 30 ml Q12H PRN PO 08/09/17 19:45 09/08/17 19:44 Ondansetron HCl (Zofran Inj) 4 mg Q6H PRN IV 08/09/17 19:45 09/08/17 19:44 Morphine Sulfate (MoRPHine SULFATE INJ) 2 mg Q30M PRN IV 08/09/17 19:45 08/23/17 19:44 Polyethylene (Miralax Powder Packet) 17 gm DAILY PRN PO 08/09/17 19:45 09/08/17 19:44 Vancomycin HCl (Consult) 1 ea UD PRN N/A 08/09/17 22:30 09/08/17 22:29 Sodium Chloride 1,000 ml @ 125 mls/hr Q8H IV 08/10/17 00:45 09/09/17 00:44 08/10/17 03:09 125 MLS/HR Vancomycin HCl 1500 mg/Sodium Chloride 530 ml @ 200 mls/hr Q10H IV 08/10/17 18:00 08/24/17 17:59 Physical Exam Vital Signs Past 12 Hours Date Time Temp Pulse Resp B/P (MAP) Pulse Ox O2 Delivery O2 Flow Rate FiO2 08/10/17 07:55 37.0 74 18 122/72 (89) 97 Room Air 08/10/17 04:00 36.5 16 129/68 (88) 96 Room Air 08/10/17 04:00 Room Air 08/10/17 00:00 Room Air The patient is alert and oriented. Mood and affect appeared normal. He answered all questions appropriately. HEENT: Pupils are equal and reactive to light and accommodation. Extraocular movements are intact. The sclerae are anicteric. Neuro: Cranial nerves intact Neck: Patient's neck is supple. He has palpable carotid pulses bilaterally without bruits on auscultation. There is no evidence of jugular venous distention. The thyroid is not enlarged. Lungs: Clear to auscultation bilaterally. He has good air movement without use of accessory muscles. No rales wheezes or rhonchi. Cardiac: Heart demonstrates a regular rate and rhythm. Normal S1 and S2. No murmurs on examination. Pulses: The patient has palpable radial pulses bilaterally that are equal in intensity Extremities: There was no evidence of hypoperfusion. There is no cyanosis or clubbing. There is no edema. Skin: I did not appreciate any rashes on examination today. Data Laboratory Results: Last 24 Hours Test 08/09/17 16:25 08/09/17 17:08 08/09/17 18:49 08/10/17 00:28 White Blood Count 25.98 K/uL Red Blood Count 4.86 M/uL Hemoglobin 16.1 g/dL Hematocrit 44.1 % Mean Corpuscular Volume 90.7 fL Mean Corpuscular Hemoglobin 33.1 pg Mean Corpuscular Hemoglobin Concent 36.5 g/dl Platelet Count 246 K/uL Mean Platelet Volume 9.0 fL Neutrophils (%) (Auto) 92.8 % Lymphocytes (%) (Auto) 2.9 % Monocytes (%) (Auto) 3.6 % Eosinophils (%) (Auto) 0.0 % Basophils (%) (Auto) 0.1 % Neutrophils # (Auto) 24.12 K/uL Lymphocytes # (Auto) 0.75 K/uL Monocytes # (Auto) 0.94 K/uL Eosinophils # (Auto) 0.00 K/uL Basophils # (Auto) 0.02 K/uL RDW Standard Deviation 45.1 fL RDW Coefficient of Variation 13.9 % Immature Granulocyte % (Auto) 0.6 % Immature Granulocyte # (Auto) 0.15 K/uL Hypersegmented Polys 1+ Prothrombin Time 11.2 SECONDS Prothromb Time International Ratio 1.0 D-Dimer 380 ug/L FEU Sodium Level 136 mmol/L Potassium Level 4.2 mmol/L Chloride Level 102 mmol/L Carbon Dioxide Level 18 mmol/L Anion Gap 16.0 mmol/L Blood Urea Nitrogen 19 mg/dl Creatinine 1.87 mg/dl Est Creatinine Clear Calc Drug Dose 70.9 ml/min Estimated GFR () 55.8 Estimated GFR (Non- 48.2 BUN/Creatinine Ratio 10.1 Random Glucose 196 mg/dl Calcium Level 9.2 mg/dl Magnesium Level 2.0 mg/dl Total Bilirubin 0.5 mg/dl Aspartate Amino Transf (AST/SGOT) 50 U/L Alanine Aminotransferase (ALT/SGPT) 42 U/L Alkaline Phosphatase 94 U/L Troponin I < 0.015 ng/ml < 0.015 ng/ml C-Reactive Protein < 0.29 mg/dl Total Protein 8.0 gm/dl Albumin 4.4 gm/dl Globulin 3.6 gm/dl Albumin/Globulin Ratio 1.2 Procalcitonin 0.52 ng/ml Thyroid Stimulating Hormone (TSH) 0.672 uIu/ml Lyme Disease IgG Antibody NEG Lyme Disease IgM Antibody NEG Influenza Type A Antigen Neg for Influ A Influenza Type B Antigen Neg for Influ B Urine Color DK YELLOW Urine Appearance CLEAR Urine pH 5.0 Urine Specific [place] 1.030 Urine Protein TRACE Urine Glucose (UA) NEG Urine Ketones 1+ Urine Occult Blood NEG Urine Nitrite NEG Urine Bilirubin NEG Urine Urobilinogen NEG Urine Leukocyte Esterase NEG Urine WBC (Auto) 1-5 /hpf Urine RBC (Auto) 0-4 /hpf Urine Hyaline Casts (Auto) 10-30 /lpf Urine Epithelial Cells (Auto) 10-20 /lpf Urine Bacteria (Auto) NEG Urine Pathogenic Casts 1-5 GRANULAR CASTS /lpf Urine Opiates Screen NEG Urine Methadone, Qualitative NEG Urine Barbiturates NEG Urine Phencyclidine (PCP) Level NEG Ur Amphetamine/Methamphetamine POS MDMA (Ecstasy) Screen NEG Urine Benzodiazepines Screen NEG Urine Cocaine Metabolite NEG Urine Marijuana (THC) NEG Test 08/10/17 06:10 08/10/17 08:30 08/10/17 09:58 White Blood Count 12.21 K/uL Red Blood Count 4.33 M/uL Hemoglobin 14.1 g/dL Hematocrit 39.3 % Mean Corpuscular Volume 90.8 fL Mean Corpuscular Hemoglobin 32.6 pg Mean Corpuscular Hemoglobin Concent 35.9 g/dl Platelet Count 212 K/uL Mean Platelet Volume 8.7 fL Neutrophils (%) (Auto) 71.1 % Lymphocytes (%) (Auto) 16.0 % Monocytes (%) (Auto) 11.0 % Eosinophils (%) (Auto) 1.1 % Basophils (%) (Auto) 0.4 % Neutrophils # (Auto) 8.69 K/uL Lymphocytes # (Auto) 1.95 K/uL Monocytes # (Auto) 1.34 K/uL Eosinophils # (Auto) 0.13 K/uL Basophils # (Auto) 0.05 K/uL RDW Standard Deviation 45.0 fL RDW Coefficient of Variation 13.8 % Immature Granulocyte % (Auto) 0.4 % Immature Granulocyte # (Auto) 0.05 K/uL Sodium Level 139 mmol/L Potassium Level 4.1 mmol/L Chloride Level 108 mmol/L Carbon Dioxide Level 23 mmol/L Anion Gap 8.0 mmol/L Blood Urea Nitrogen 22 mg/dl Creatinine 1.42 mg/dl Est Creatinine Clear Calc Drug Dose 93.4 ml/min Estimated GFR () 77.9 Estimated GFR (Non- 67.2 BUN/Creatinine Ratio 15.4 Random Glucose 86 mg/dl Calcium Level 8.4 mg/dl Magnesium Level 2.1 mg/dl Urine Random Creatinine 296.0 mg/dl Urine Random Sodium 43 mEq/L Troponin I < 0.015 ng/ml Imaging: CT of the chest did not reveal any notable intrathoracic abnormality. There was no aortic dissection. There was evidence of fatty liver. EKG: Normal sinus rhythm. Normal EKG. Telemetry reviewed: No arrhythmia Echocardiogram: Normal echocardiogram. Assessment & Plan 1. Chest pain: Patient's chest pain is atypical for an acute coronary syndrome. There is no evidence of myocardial damage. The symptoms are not pleuritic or positional in nature which would been more consistent with pericarditis. He had no effusion on echocardiogram. There is no PE or evidence of aortic dissection. There is no pulmonary abnormality on imaging. Interestingly, he did have similar symptoms with a prior viral illness. I suspect this represents an element of pleuritis. Given his otherwise good health and absence of cardiovascular symptoms I would not pursue any additional cardiac evaluation. 2. Palpitations: His rhythm at the time of presentation was a sinus tachycardia. He reports the symptoms being present at the time of presentation which would make this the most likely etiology. Interestingly, his toxicology screen was positive for methamphetamine. This may have contributed to both symptoms. In the setting of normal LV systolic function, normal EKG and the resolution of his symptoms with a change to normal sinus rhythm and rate, I would not pursue any additional evaluation.
[2017-08-10 13:56] LABS: BASO % 0.4 %; BASO ABS # 0.04 K/uL (0-0.2); COMPLETE YES; EOS % 1.1 %; HEMATOCRIT 39.4 % (42-52); IG% 0.3 %; LYMPH % 16.8 %; LYMPH ABS # 1.66 K/uL (1.2-3.4); MEAN CELL VOLUME 91.2 fL (80-100); MEAN CORPUSCULAR HEMOGLOBIN 33.1 pg (25-34); MEAN CORPUSCULAR HGB CONC 36.3 g/dl (32-36); MEAN PLATELET VOLUME 8.9 fL (7.4-10.4); MONO % 7.9 %; NEUT % 73.5 %; PLATELET COUNT 210 K/uL (130-400); RED BLOOD COUNT 4.32 M/uL (4.7-6.1); WHITE BLOOD COUNT 9.91 K/uL (4.8-10.8)
[2017-08-10] MEDS: VANCOMYCIN INJ 1,500 MG in SODIUM CHLORIDE 0.9% 500ML 500 ML IV SCH (17:47)
[2017-08-10] MEDS ORDERED: CEFTRIAXONE SOD INJ 1 GM in DEXTROSE 5% ADD-VANTAGE 50ML 50 ML IV SCH (20:00)
[2017-08-11] MEDS: SODIUM CHLORIDE 0.9% 1000ML 1,000 ML IV SCH (00:02)
[2017-08-11] MEDS ORDERED: VANCOMYCIN TROUGH ONE (03:30)
[2017-08-11 03:38] LABS: BASO % 0.8 %; BASO ABS # 0.05 K/uL (0-0.2); COMPLETE YES; EOS % 2.9 %; HEMATOCRIT 39.1 % (42-52); IG% 0.2 %; LYMPH % 28.8 %; LYMPH ABS # 1.81 K/uL (1.2-3.4); MEAN CELL VOLUME 91.8 fL (80-100); MEAN CORPUSCULAR HEMOGLOBIN 32.6 pg (25-34); MEAN CORPUSCULAR HGB CONC 35.5 g/dl (32-36); MEAN PLATELET VOLUME 8.7 fL (7.4-10.4); MONO % 10.5 %; NEUT % 56.8 %; PLATELET COUNT 166 K/uL (130-400); RED BLOOD COUNT 4.26 M/uL (4.7-6.1); WHITE BLOOD COUNT 6.28 K/uL (4.8-10.8)
[2017-08-11 04:00] LABS: BUN/CREATININE RATIO 13.6 (10-20); CALCIUM 8.3 mg/dl (8.5-10.1); CREATININE 1.33 mg/dl (0.60-1.40); POTASSIUM 4.3 mmol/L (3.5-5.1)
[2017-08-11] MEDS: VANCOMYCIN INJ 1,500 MG in SODIUM CHLORIDE 0.9% 500ML 500 ML IV SCH (04:16)
--- NOTE | 2017-08-11 05:40 | Pharmacy Progress Note ---
Pharmacy Abx Dose Short Note Date of Service Aug 11, 2017. Assessment & Plan Assessment * Mr Chamberlain is a 27 year old male receiving IV Vancomycin/Ceftriaxone for empiric tx of infection w/ unknown origin * Day #3 of antimicrobial therapy. Plan Vancomycin * Trough level of 11.5 mcg/mL is subtherapeutic, but is not yet near steady state * Trough level obtained after 3rd dose, but after only one dose of increased regimen * Continue dose of Vancomycin 1500 mg IV every 10 hours * Goal trough level: 15 to 20 mcg/mL, for infection of uknown source and C/S * Trough level ordered for: 08/12 to assess steady state level Pharmacy will continue to follow and will adjust dose/frequency as necessary. Thank you.
--- NOTE | 2017-08-11 06:41 | Discharge Instructions ---
Discharge Instructions Date of Service Aug 11, 2017. Admission Reason for Admission: Arf (Acute Renal Failure); Chest Pain Discharge Discharge Diagnosis / Problem: Acute Bacterial Rhinosinusitis Discharge Goals Goal(s): Improve disease control Activity Recommendations Activity Limitations: per Instructions/Follow-up section . Instructions / Follow-Up Instructions / Follow-Up You will be discharged on a medication called Augmentin for bacterial rhinosinusitis. Please take 1 tab every 8 hours for the next 6 days. An information packet on Augmentin and Bacterial Rhinosinusitis will be attached to your discharge. Please read those documents carefully. Augmentin may cause upset stomach and diarrhea. Taking a probiotic (yogurt or capsule) can help prevent antibiotic associated diarrhea. If you have profuse watery diarrhea for several please see your PCP immediately or see a urgent care doctor. Our development specialist does not think your chest pain is related to your heart. Your lab markers indicated that you had a bacterial infection. On your discharge your blood cultures were not finalized. If a bacteria grows from your blood cultures someone from the hospital will reach out to you. Or a physician associated with the following physician groups will be able to access the [facility] records ([facility], [facility], [facility]) We recommend follow up with any primary care doctor within one week (7 days) of discharge. While in the hospital you were being taken care of my [facility]. We recommend follow up at our clinic at [address] [place] [address], [address], for continuity of care. Your Attending Doctor was Dr. Hart and your Resident Physicians were Dr. Pebbles Rivera and Dr. Florentino Mirza. Patient was printed a Prescription that said 500mg of Augmentin every 12 hours ( 18 tabs total). The prescription should say every 8 horus (18 tabs total). I have tried calling the patient twice and there has been no response. The patients voicemail box is full. I have also contacted his preferred pharmacy ( [facility] on [address] [facility]) and he has not yet picked up the Rx. [facility] has created a global alert to the dosing from TID to BID. I will try calling the patient back later this afternoon. Pt does have discharge instructions on Bacterial Rhinosinusitis with extensive return instructions. I will also look into the charge and find next of kin and their contact information. Current Hospital Diet Patient's current hospital diet: AHA Diet (Heart Healthy) Discharge Diet Recommended Diet: Regular Diet Pending Studies Studies pending at discharge: yes List of pending studies: Blood cultures Medical Emergencies . Who to Call and When: Medical Emergencies: If at any time you feel your situation is an emergency, please call 911 immediately. . Non-Emergent Contact Non-Emergency issues call your: Primary Care Provider Call Non-Emergent contact if: temperature is above 101 . . "Provider Documentation" section prepared by Pebbles Rivera. . VTE Core Measure Inpt VTE Proph given/why not?: SCD's, Treatment not indicated Resident Involvement: Resident Care Provided Care Provided: Adult Hospital Medicine
[2017-08-11 07:51] VITALS: BP 143/88; PULSE 74; TEMP 36.9; O2SAT 98
[2017-08-11 08:00] VITALS: O2SAT 98
[2017-08-11] MEDS ORDERED: AMOX500T PO ×2 (09:14→10:42)
[2017-08-11 09:16] VITALS: BP 143/88; PULSE 74; TEMP 36.9; O2SAT 98
--- NOTE | 2017-08-11 19:13 | Discharge Summary ---
Discharge Summary Date of Service Aug 11, 2017. (Pebbles Rivera M.D.) Discharge Summary Admission Date: Aug 09, 2017 at 19:40 Discharge Date: Aug 11, 2017 Discharge Disposition: Home Principal Diagnosis: Leukocytosis Problems/Secondary Diagnoses: Sinusitis, atypical chest pain (Pebbles Rivera M.D.) Medication Reconciliation New Medications: Amoxicillin & Pot Clavulanate (Augmentin 500MG) 1 Tab Tab 1 TAB PO TID for 6 Days, #18 TAB Discharge Exam Review of Systems: Constitutional: No fever, No chills, No sweats, No weight loss, No weakness , No fatigue, No problem reported ENT: + nasal symptoms Respiratory: No cough, No sputum, No wheezing, No shortness of breath, No dyspnea on exertion, No dyspnea at rest, No hemoptysis, No problem reported Cardiovascular: No chest pain, No orthopnea, No PND, No edema, No claudication, No palpitations, No problem reported Abdomen: No pain, No nausea, No vomiting, No diarrhea, No constipation, No GI bleeding, No problem reported Musculoskeletal: No joint pain, No muscle pain, No swelling, No calf pain, No problem reported Neurologic: No memory loss, No paralysis, No weakness, No numbness/tingling , No vertigo, No balance problems, No problem reported Physical Exam: General Appearance: WD/WN, no apparent distress Eyes: normal inspection, EOMI ENT: hearing grossly normal, + nasal congestion, + nasal drainage Neck: supple, no adenopathy Respiratory/Chest: chest non-tender, lungs clear, normal breath sounds, no respiratory distress, no accessory muscle use Cardiovascular: regular rate, rhythm, no edema, no gallop, no JVD, no murmur Abdomen / GI: normal bowel sounds, non tender, soft Extremities: normal inspection Neurologic/Psychiatric: track template maker II-XII nml as tested, no motor/sensory deficits , alert, normal mood/affect, normal reflexes (Pebbles Rivera M.D.) Hospital Course 27 yo M admitted with left sided non radiating chest pain after a recent illness. Patient had an elevated WBC with no focal point of infection noted at this time as well as BISHOP. Chest pain, unknown cause - pericarditis vs NSTEMI vs musculoskeletal - concern based on marfanoid habitus and atypical nature of pain - Chest CTA negative for cardiac pathology, did find fatty infiltrates of liver - troponin trend x 3 negative - Cardio consulted: Do not think pain is of cardiac origin. - + amphetamine lab test, awaiting confirmatory test on Spotzer Leukocytosis - infectious? - as there was no focal source on exam for potential infection CT abd pelvis was ordered as well as a chest CTA - Procalcitonin mildly elevated, and repeat was moderately elevated at 1.72 - rocephin and vanco administered for 24 hours - peripheral smear, C diff and stool cultures, blood cx at large - follow up CBC and procalcitonin - Will DC on augmentin for sinusitis BISHOP secondary to dehydration - resolving, should recheck BMP - Renal US normal Total Time Spent: Less than 30 minutes This includes examination of the patient, discharge planning, medication reconciliation, and communication with other providers. (Pebbles Rivera M.D.) Discharge Instructions Please refer to the electronic Patient Visit Report (Discharge Instructions) for additional information. (Pebbles Rivera M.D.) Follow-Up Follow up with Dr. Mirza within 1 week. (Pebbles Rivera M.D.) Additional Copies To Florentino Mirza M.D. Assessment/Plan Resident Physician Supervision Note: I was present with Dr. Rivera during the history and exam. I discussed the case with the resident and agree with the findings and plan as documented in the note. Any exceptions or clarifications are listed here. 27 y/o male with a history of single episode central chest pain presents w/ chest pain. Pt reports resolution of chest pain and b/l nasal congestion with persistent laryngopharyngitis w/ nonproductive cough. S1/S2 nl RRR no MCG, CTAB , abd NT/ND BS +ve. Cardiology has evaluated this patient and does not find the chest pain concerning for cardiac origin. Regarding his leukocytosis, diagnosis of ABRS treated w/ augmentin on discharge. Mild elevated Cr resolved. (Jamarcus Hart MD)
[2017-08-12] MEDS ORDERED: VANCOMYCIN TROUGH ONE (09:30)
[2017-08-12 14:15] LABS: COMPLETE YES
== END 2017-08-11 10:00 | disposition home or self-care (01) | DRG 153 ==
LOC: C.EDB 15:47 → C.MED 19:40 → ENRESERV 19:58
PROVIDERS: ADMIT Internal Medicine; ATTEND Family Medicine
DX: J01.90 Acute sinusitis, unspecified (principal); N17.9 Acute kidney failure, unspecified; R07.89 Other chest pain; I44.0 Atrioventricular block, first degree; F15.90 Other stimulant use, unspecified, uncomplicated; Z87.891 Personal history of nicotine dependence